=== PATIENT | male | born 1960 | race Caucasian/White ===

== ENCOUNTER 2017-04-10 10:23 | Emergency (ER) | payer OTHER ==
[~2017-04-10] VITALS: Ht 182.9 cm; Wt 93.0 kg
[~2017-04-10 10:23] MED LIST: ACETAMINOPHEN-1 EAC1 PO; ACETAMINOPHEN325 M1 PO; AZITHROMYCIN250 MG PO; CEPHALEXIN500 MG PO; DICLOFENAC SODI75 MG PO; DOXYCYCLINE HY100 MG PO; GABAPENTIN100 MG PO; GUAIFENESIN-CO118 ML PO; GUIATUSS AC SY120 ML PO; HYDROCODON-ACE1 EA10 PO; LISINOPRIL-HCT1 EAC2 PO; MELOXICAM15 MG PO; NORCO 5-325 TA1 EACH PO; PREDNISONE20 MG PO; PROVENTIL HFA6.7 GM INH; SPACE CHAMBER1 EACH MC; TRAMADOL HCL50 MG PO; VALACYCLOVIR1000 MG PO
== END 2017-04-10 10:38 | disposition home or self-care (01) ==
LOC: ED 10:23
DX: Z00.8 Encounter for other general examination (principal)

== ENCOUNTER 2018-05-10 08:18 | Emergency (ER) | payer OTHER ==
[~2018-05-10] VITALS: Ht 182.9 cm; Wt 95.7 kg
--- OUTSIDE RECORDS SUMMARY | ~2018-05-10 | XMS | Clinical Summary ---
Demographics + + + | Address | [address] | | | [place] [address] | + + + | Home Phone | | + + + | Preferred Language | Unknown | + + + | Marital Status | Single | + + + | Temple Affiliation | 1041 | + + + | Race | Unknown | + + + | Ethnic Group | Unknown | + + + Author + + + | Author | [facility] | | | and [place] | + + + | Organization | [facility] | | | and [place] | + + + | Address | Unknown | + + + | Phone | Unavailable | + + + Support + + +---------+ + | Name | Relationship | Address | Phone | + + +---------+ + | TASHA OWEN | ECON | Unknown | | + + +---------+ + Care Team Providers + +------+ + | Care Concrete Paving Machine Operator Name | Role | Phone | + +------+ + PP | Unavailable | + +------+ + Allergies Not on File Current Medications Not on file Active Problems Not on file Social History + +-------+ +--------+------+ | Tobacco Use | Types | Packs/Day | Years | Date | | | | | Used | | + +-------+ +--------+------+ | Never Assessed | | | | | + +-------+ +--------+------+ + + + | Sex Assigned at | Date Recorded | | | | + + + | Not on file | | + + + Plan of Treatment + + + + + | Health Maintenance | Due Date | Last Done | Comments | + + + + + | Vaccine: | | | | | Dtap/Tdap/Td (1 - | 9 | | | | Tdap) | | | | + + + + + | Vaccine: Influenza | | | | | (#1) | 8 | | | + + + + + Results Not on filefrom Last 3 Months"
--- OUTSIDE RECORDS SUMMARY | ~2018-05-10 | XMS | Clinical Summary ---
Demographics + + + | Address | [address] | | | [place] [address] | + + + | Home Phone | | + + + | Preferred Language | Unknown | + + + | Marital Status | Single | + + + | Tenriism Affiliation | 1041 | + + + | Race | Unknown | + + + | Ethnic Group | Unknown | + + + Author + + + | Author | [facility] | | | and [place] | + + + | Organization | [facility] | | | and [place] | [...] Team Providers + +------+ + | Care Fisher Trawl Line Name | Role | Phone | + [...]
[2018-05-10] MEDS ORDERED: VENTOLIN HFA18 GM INH (09:44)
[2018-05-10] MEDS ORDERED: DILTIAZEM 24HR120 M1 PO (09:44)
[2018-05-10] MEDS ORDERED: PREDNISONE20 MG PO (09:44)
--- NOTE | 2018-05-10 15:13 | EKG ---
[facility] [address] [facility] [place] [address] Signed Atrial fibrillation with rapid ventricular response Abnormal ECG No previous ECGs available Confirmed by RONEN NETTLES MD ([id number]) on 05/10/2018 3:13:53 PM Electronically Signed By: RONEN NETTLES MD 05/10/18 1513 PATIENT NAME: CHAUNCEY OWEN Electrocardiogram DATE OF : 60 PHYSICIAN: RONEN NETTLES MD REPORT #: [id number] REPORT IS CONFIDENTIAL AND NOT TO BE RELEASED WITHOUT AUTHORIZATION
== END 2018-05-10 10:09 | disposition home or self-care (01) ==
LOC: ED 08:18
DX: J20.9 Acute bronchitis, unspecified (principal); I48.91 Unspecified atrial fibrillation; Z88.1 Allergy status to other antibiotic agents
CPT/HCPCS: 71046; 80053; 83880; 84484; 85025; 93005; 93010; 94640; 96374; 99285; J7512

== ENCOUNTER 2019-05-31 08:51 | Emergency (ER) | payer OTHER ==
[~2019-05-31] VITALS: Ht 182.9 cm; Wt 95.7 kg
[~2019-05-31 08:51] MED LIST changes: +DILTIAZEM 24HR120 M1 PO; +VENTOLIN HFA18 GM INH
--- OUTSIDE RECORDS SUMMARY | 2019-05-31 08:54 | XMS ---
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 Care History Medical/Surgical 05/10/2018 [facility] - Patient has not established with a PCP at the clinic. Please refer patient to the clinic to establish with a provider. - Patient has only been seen in the walk in clinic but has never established care. - Patient is currently established with [facility]. If patient is seen in the ED during business hours. Please contact CHWs at [facility]. Care Recommendation: This patient has had 5 or more Emergency Department visits in the last 12 months.\T\nbsp; Patient requires education on the scope and purpose of the ED as an acute care provider not a Primary Care Provider and should not be utilized for chronic conditions.\T\nbsp; These are guidelines and the provider should exercise clinical judgment when providing care. E.D. VISIT COUNT (12 MO.) 1 [facility] TOTAL 1 NOTE: Visits indicate total known visits. ED/UCC VISIT TRACKING (12 MO.) 05/31/2019 08:52 [facility] [place] TYPE: Emergency COMPLAINT: - RIGHT LEG PAIN INPATIENT VISIT TRACKING (12 MO.) No inpatient visits to display in this time frame [id number]
[2019-05-31] MEDS ORDERED: NORCO 5-325 TA1 EACH PO (10:14)
== END 2019-05-31 10:40 | disposition home or self-care (01) ==
LOC: ED 08:51
DX: S82.61XA Displaced fracture of lateral malleolus of right fibula, initial encounter for closed fracture (principal); W22.8XXA Striking against or struck by other objects, initial encounter; Z88.1 Allergy status to other antibiotic agents; Z79.52 Long term (current) use of systemic steroids
CPT/HCPCS: 73560; 73590; 73610; 82550; 99283

== ENCOUNTER → 2020-05-13 | Emergency (ER) | payer OTHER ==
[~2020-05-13] VITALS: Ht 175.3 cm; Wt 98.4 kg
--- OUTSIDE RECORDS SUMMARY | ~2020-05-13 | XMS | Clinical Summary ---
Demographics + + + | Address | [address] | | | [place] [address] | + + + | Home Phone | | + + + | Preferred Language | Unknown | + + + | Marital Status | Single | + + + | Restorationist Affiliation | 1041 | + + + | Race | Unknown | + + + | Ethnic Group | Unknown | + + + Author + + + | Author | [facility] | | | and [place] | + + + | Organization | [facility] | | | and [place] | + + + | Address | Unknown | + + + | Phone | Unavailable | + + + Support + + +---------+ + | Name | Relationship | Address | Phone | + + +---------+ + | James Ritter | ECON | Unknown | | + + +---------+ + Care Team Providers + +------+ + | Care Systems Mgr Name | Role | Phone | + +------+ + PCP | Unavailable | + +------+ + Allergies Not on File Medications Not on file Active Problems Not [...] on file | | + + + Last Filed Vital Signs Not on file Plan of Treatment + + +-------+ + | Health Maintenance | Due Date | Last | Comments | | | | Done | | + + +-------+ + | Vaccine: | | | | | Dtap/Tdap/Td (1 - | 9 | | | | Tdap) | | | | + + +-------+ + | Vaccine: Zoster (1 | | | | | of 2) | 0 | | | + + +-------+ + | Vaccine: Influenza | | | | | (#1) | 0 | | | + + +-------+ + Results Not on filefrom Last 3 Months"
--- OUTSIDE RECORDS SUMMARY | ~2020-05-13 | XMS | Encounter Summary ---
Demographics + + + | Address | [address] | | | [place] [address] | + + + | Home Phone | | + + + | Preferred Language | Unknown | + + + | Marital Status | Single | + + + | Methodist Affiliation | 1041 | + + + | Race | Unknown | + + + | Ethnic Group | Unknown | + + + Author + + + | Author | [facility] | | | and [place] | + + + | Organization | [facility] | | | and [...] Team Providers + +------+ + | Care Psychopaedic Nurse Name | Role | Phone | + +------+ + PCP | Unavailable | + +------+ + Encounter Details +--------+ + + + + | Date | Type | Department | Care Team | Description | +--------+ + + + + | 10/03/ | Hospital | [facility] | Lex Ruth | | | 2002 | Encounter | MED CTR SLEEP | MD Brigitte [address] | | | | | CENTER [address] | [address] [facility] | | | | | [place], [place] | [place] [address] | | | | | [address] | [phone] | | | | | [phone] | | | +--------+ + + + + Social History + +-------+ +--------+------+ | Tobacco [...] on file | | + + + documented as of this encounter Plan of Treatment Not on filedocumented as of this encounter Visit Diagnoses Not on filedocumented in this encounter"
--- OUTSIDE RECORDS SUMMARY | 2020-05-13 06:54 | XMS ---
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 Care History Medical/Surgical 05/10/2018 [facility] - Patient has not established with a PCP at the clinic. Please refer patient to the clinic to establish with a provider. - Patient has only been seen in the walk in clinic but has never established care. - Patient is currently established with [facility]. If patient is seen in the ED during business hours. Please contact CHWs at [facility]. Care Recommendation: This patient has had 5 [...] care. E.D. VISIT COUNT (12 MO.) 1 [facility] 2 SH[facility] Gloria TOTAL 3 NOTE: Visits indicate total known visits. ED/UCC VISIT TRACKING (12 MO.) 05/13/2020 06:53 [facility] [place] TYPE: Emergency COMPLAINT: - DIFFICULTY BREATHING 05/05/2020 09:19 [facility] [place] TYPE: Emergency COMPLAINT: - COUGH SINUS INFECTION 05/31/2019 08:[address] [facility] [place] TYPE: Emergency COMPLAINT: - RIGHT LEG PAIN DIAGNOSES: - longterm (current) use of systemic steroids - Striking against or struck by other objects, initial encounte - Allergy status to other antibiotic agents status - Displaced fracture of lateral malleolus of right fibula, init - Pain in right leg INPATIENT VISIT TRACKING (12 MO.) No inpatient visits to display in this time frame [id number]
== END ==
LOC: ED 06:53
DX: J20.9 Acute bronchitis, unspecified (principal); J42 Unspecified chronic bronchitis; J32.9 Chronic sinusitis, unspecified; Z88.1 Allergy status to other antibiotic agents; Z79.899 Other long term (current) drug therapy; Z79.52 Long term (current) use of systemic steroids
CPT/HCPCS: 99283; J7512

== ENCOUNTER 2021-08-18 11:19 | Emergency (ER) | payer OTHER ==
[~2021-08-18] VITALS: Ht 175.3 cm; Wt 104.0 kg
--- OUTSIDE RECORDS SUMMARY | 2021-08-18 11:28 | XMS ---
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 Care History Medical/Surgical 05/14/2020 [facility] - Patient is currently established with [facility]. If patient is seen in the ED during business hours. Please contact CHWs at [facility]. Care Recommendation: If this patient has had 5 or more Emergency Department visits in the last 12 months.\T\nbsp; Patient will require education on the scope and purpose of the ED as an acute care provider not a Primary Care Provider and should not be utilized for chronic conditions.\T\nbsp; These are guidelines and the provider should exercise clinical judgment when providing care. 05/14/2020 [facility] Patient not seen PCP Dr. Miller since 09/14/2019.\T\nbsp; Cannot reach patient by phone.\T\nbsp; Sent letter to follow up with PCP. [place] VISIT COUNT (12 MO.) [address] TOTAL 3 NOTE: Visits indicate total known visits. ED/UCC VISIT TRACKING (12 MO.) 08/18/2021 11:22 [facility] [place] TYPE: Emergency COMPLAINT: - CHEST CONGESTION, STUFFY NOSE, HEADACHE 03/21/2021 11:41 [facility] [place] TYPE: Emergency COMPLAINT: - SINUS INFECTION DIAGNOSES: - Personal history of other diseases of the respiratory system - Cough - Chest pain on breathing 02/07/2021 10:40 [facility] [place] TYPE: Emergency COMPLAINT: - SINUS/COLD SYMPTOMS DIAGNOSES: - Acute bronchitis, unspecified - Essential (primary) hypertension - Postnasal drip - Postnasal drip - Acute bronchitis, unspecified - Acute maxillary sinusitis, unspecified - Essential (primary) hypertension - Acute maxillary sinusitis, unspecified INPATIENT VISIT TRACKING (12 MO.) No inpatient visits to display in this time frame [email or web address]
[2021-08-18] MEDS ORDERED: METOPROLOL SUCC50 MG PO (11:43)
[2021-08-18] MEDS ORDERED: AMOXICILLIN500 M1 PO (14:04)
[2021-08-18] MEDS ORDERED: PREDNISONE20 MG PO (14:04)
== END 2021-08-18 14:16 | disposition home or self-care (01) ==
LOC: ED 11:19
DX: J20.9 Acute bronchitis, unspecified (principal); Z20.822 Contact with and (suspected) exposure to COVID-19; Z88.1 Allergy status to other antibiotic agents; Z79.899 Other long term (current) drug therapy
CPT/HCPCS: 71045; 94664; 99284-25; C9803; J7512; U0003

== ENCOUNTER 2025-07-18 07:53 | Day surgery (SDC) | payer OTHER ==
[2025-07-08 11:34] VITALS: BP 116/81
[~2025-07-18] VITALS: Ht 175.3 cm; Wt 113.8 kg
[~2025-07-18 07:53] MED LIST changes: +ADULT ASPIRIN R81 MG PO; +AMOXICILLIN500 M1 PO; +CETIRIZINE HCL10 MG PO; +ELIQUIS5 MG PO; +IBLOOD GLUCOSE TEST STRIP 1 EA TEST VI PRN; +LACTATED RINGER'S 1,000 ML IV SCH; +LIDOCAINE HCL 1% 5 ML SDV INJ ONE; +LISINOPRIL10 MG PO; +METOPROLOL SUCC50 MG PO
[2025-07-18 08:07] VITALS: BP 152/95
[2025-07-18] MEDS ORDERED: PEPCID AC20 MG PO (08:10)
[2025-07-18] MEDS ORDERED: TYLENOL PM EXS1 EACH PO (08:10)
[2025-07-18] MEDS ORDERED: LIDOCAINE HCL 2% 5 ML SDV ONE (11:20)
[2025-07-18] MEDS ORDERED: GLUCAGON,HUMAN RECOMBINANT 1 MG/ML VIAL ONE (11:40)
[2025-07-18 12:22] VITALS: BP 142/95
--- NOTE | 2025-07-18 12:24 | NUR ---
07/18/25 1224 Sheets,Valeria 1212 PT ARRIVED TO PACU WITH ORAL AIRWAY AND 6L VIA MASK. PT WAKES AND ORAL AIRWAY AND MASK REMOVED. HOB INCREASED PER REQUEST. VSS. 1223 PT SIPPING SODA AND PLAN OF CARE DISCUSSED.
--- NOTE | 2025-07-22 16:02 | PATH ---
[facility] [address] [place], [place] [address] Signed SPECIMEN(S): A CECUM COLON POLYP SPECIMEN(S): B DISTAL TRANSVERSE COLON POLYP SPECIMEN(S): C DISTAL COLON POLYP AT 65 CM SPECIMEN SOURCE: A. CECUM COLON POLYP B. DISTAL TRANSVERSE COLON POLYP C. DISTAL COLON POLYP AT 65 CM CLINICAL HISTORY: Colon screening, colon polyps and diverticulosis FINAL PATHOLOGIC DIAGNOSIS: A. Cecal colon polyp: - Tubular adenoma. - Negative for high-grade dysplasia or malignancy. B. Distal transverse colon polyp: - Tubular adenoma. - Negative for high-grade dysplasia or malignancy. C. Distal colon polyp at 65 cm: - Tubular adenoma. - Negative for high-grade dysplasia or malignancy. [facility] MICROSCOPIC EXAMINATION: Histologic sections of all submitted blocks are examined by light microscopy. These findings, together with the gross examination, support the pathologic diagnosis. GROSS DESCRIPTION: A. The specimen, labeled and designated "Scharn, cecum colon polyp," is received in formalin and consists of two mishra soft tissue fragments, ranging from 0.1-0.2 cm. Entirely submitted in (A1). B. The specimen, labeled and designated "Scharn, distal transverse colon polyp," is received in formalin and consists of two mishra soft tissue fragments, ranging from 0.2-0.3 cm. Entirely submitted in (B1). C. The specimen, labeled and designated "Scharn, distal colon polyp at 65 cm," is received in formalin and consists of one mishra soft tissue fragment, 0.3 cm. Entirely submitted in (C1). VB (under the direct supervision of a pathologist) PATIENT NAME: CHAUNCEY OWEN PATHOLOGY DATE OF : 60 REPORT #: [id number] PHYSICIAN: JOSE LONG PCP: LORNE MILLER MD REPORT IS CONFIDENTIAL AND NOT TO BE RELEASED WITHOUT AUTHORIZATION [facility] [address] [place] [id number] Signed The Gross Description was prepared using a voice recognition system. The report was reviewed for accuracy; however, sound-alike word errors, addition and/or deletions may occur. If there is any question about this report, please contact Client Services. ADDITIONAL NOTES: Immunohistochemical and/or in situ hybridization studies if performed in this case included appropriate positive controls that reacted as expected. This test was developed and its performance characteristics determined by [facility]. It has not been cleared or approved by the U.S. Food and Drug Administration. The FDA has determined that such clearance or approval is not necessary. This test is used for clinical purposes. It should not be regarded as investigational or for research. [facility] is certified under the Clinical Laboratory Improvement Amendments of 1988 (CLIA) as qualified to perform high complexity clinical laboratory testing. PERFORMING LABORATORY: Technical component was performed by [facility], [address] [place] [id number] (CLIA# [id number]). Professional interpretation was performed by [facility], [address] [place] [id number] (CLIA#: [id number]). Diagnostician: Kashif Banda MD Pathologist Electronically Signed 07/22/2025 Copies: ~ PATIENT NAME: CHAUNCEY OWEN PATHOLOGY DATE OF : 60 REPORT #: [id number] PHYSICIAN: JOSE PATHOLOGY PCP: LORNE MILLER MD REPORT IS CONFIDENTIAL AND NOT TO BE RELEASED WITHOUT AUTHORIZATION
== END 2025-07-18 12:33 | disposition home or self-care (01) ==
LOC: OPS 07:53 → DS 07:53 → OPS 09:10 → DS 09:30 → OPS 09:30
PROVIDERS: ATTEND Surgery
PROC: 0DBL8ZX Excision of Transverse Colon, Via Natural or Artificial Opening Endoscopic, Diagnostic (ICD-10-PCS; 2025-07-18)
PROC: 0DBH8ZX Excision of Cecum, Via Natural or Artificial Opening Endoscopic, Diagnostic (ICD-10-PCS; principal; 2025-07-18 09:10)
DX: Z12.11 Encounter for screening for malignant neoplasm of colon (principal); D12.0 Benign neoplasm of cecum; D12.3 Benign neoplasm of transverse colon; D12.4 Benign neoplasm of descending colon; K57.30 Diverticulosis of large intestine without perforation or abscess without bleeding; Z87.891 Personal history of nicotine dependence; Z88.1 Allergy status to other antibiotic agents; Z88.8 Allergy status to other drugs, medicaments and biological substances
CPT/HCPCS: 00812; 88305; J1610; J2003; J2704; J7121